=== PATIENT | male | born 1960 | race Caucasian/White ===

== ENCOUNTER 2016-10-04 21:16 | Emergency (ER) | payer BC ==
[~2016-10-04] VITALS: Ht 185.4 cm; Wt 87.0 kg
[~2016-10-04 21:16] MED LIST: CLEOCIN300 MG PO; PERCOCET 5/31 TABLET PO; TOBREX5 ML RIGHT EYE
[2016-10-04] MEDS ORDERED: TOBREX5 ML RIGHT EYE (22:45)
[2016-10-04 22:52] VITALS: BP 117/74
== END 2016-10-04 23:00 | disposition home or self-care (01) ==
LOC: EME 21:16
PROC: 08C8XZZ Extirpation of Matter from Right Cornea, External Approach (ICD-10-PCS; principal; 2016-10-04)
DX: T15.01XA Foreign body in cornea, right eye, initial encounter (principal); Y99.0 Civilian activity done for income or pay; W22.8XXA Striking against or struck by other objects, initial encounter; Z88.0 Allergy status to penicillin; Z88.2 Allergy status to sulfonamides
CPT/HCPCS: 99281; 99283